=== PATIENT | female | born 1960 | race Caucasian/White ===

== ENCOUNTER → 2020-12-15 | Outpatient (CLI) | payer OTHER ==
--- NOTE | 2020-12-15 14:04 | RAD ---
EXAM: Lumbar spine, 2 views; right hand, 2 views; cervical spine, 2 views. HISTORY: Pain. COMPARISON: None. FINDINGS: Lumbar spine: 2 views of the lumbar spine are obtained. There are 6 nonrib-bearing vertebral segments , a normal variant. For the purposes of this dictation, the last lumbar segment is considered L6. The re is lumbar levoscoliosis centered at L3-L4. There is slight lateral translation of L4 and L5. There is degenerative endplate remodeling with disc space narrowing, osteophytosis and Schmorl's node form ation at L4-L5. There is facet arthropathy at multiple levels. Left hand: 2 views of the left hand are obtained. There is no fracture, dislocation or subluxation. T here is no radiodense foreign body. Cervical spine: 2 views of the cervical spine are obtained. There is instrumented intraspinal fusion and interbody fusion at C3-C4. There is straightening of cervical lordosis. There is multilevel endpl ate remodeling with disc space narrowing. There is right greater than left facet arthropathy at the u pper and mid cervical levels. There are prominent C7 transverse processes without carmen cervical ribs . IMPRESSION: 1. 6 nonrib-bearing vertebral segments. For the purposes of this dictation, the last segment is consi dered L6. Based on this numbering system, there is degenerative change involving the lumbar spine pre dominantly at L4-L5 and there is lumbar scoliosis centered at L3-L4. 2. Instrumented fusion at C3-C4 and multilevel degenerative change throughout the cervical spine, mara cribed above. 3. No acute osseous finding. Electronically signed by: Cornelia Navarro MD (12/15/2020 2:02 PM) [id number]
== END ==
LOC: RAD 13:11
PROVIDERS: ATTEND Anesthesiology Pain Medicine
DX: M47.816 Spondylosis without myelopathy or radiculopathy, lumbar region (principal); M41.86 Other forms of scoliosis, lumbar region; M47.812 Spondylosis without myelopathy or radiculopathy, cervical region; M48.02 Spinal stenosis, cervical region; M25.78 Osteophyte, vertebrae; M51.46 Schmorl's nodes, lumbar region; M48.8X6 Other specified spondylopathies, lumbar region; M48.8X2 Other specified spondylopathies, cervical region
CPT/HCPCS: 72040; 72100; 73120